=== PATIENT | male | born 1995 | race Caucasian/White ===

== ENCOUNTER 2025-02-11 14:54 | Emergency (ER) | payer OTHER, SELFPAY ==
[2025-02-11 15:00] VITALS: BP 179/112
[2025-02-11] MEDS: ZOFRAN ODT (ORALLY DISINTEGRATING) 4 MG PO (15:11)
[2025-02-11 15:19] LABS: Hematocrit 43.7 % (39.0-52.0); Hemoglobin 14.8 g/dL (13.0-18.0); Mean Corp Hgb Conc. 33.9 g/dL (33.0-37.0); Mean Corpuscular Volume 78.0 fL (80.0-94.0); Nucleated Red Blood Cells % 0 % (-); Platelet Count 308 10^3/uL (130-400); Red Cell Dist. Width 12.8 % (11.5-14.5)
[2025-02-11 15:32] LABS: ALT (SGPT) 71 U/L (0-50); AST (SGOT) 48 U/L (17-59); Albumin 5.2 g/dl (3.5-5.0); Alkaline Phosphatase 94 U/L (38-126); Blood Urea Nitrogen 8 mg/dl (9-20); Calcium 10.6 mg/dl (8.4-10.2); Carbon Dioxide 26 mmol/L (22-30); Chloride 104 mmol/L (98-107); Glucose 142 mg/dl (70-99); Lipase 33 U/L (23-300); Potassium 4.9 mmol/L (3.5-5.1); Sodium 139 mmol/L (135-145); Total Protein 8.8 g/dl (6.3-8.2); eGFR > 60.00
[2025-02-11] MEDS: NSS 1000 IV (18:54)
[2025-02-11] MEDS: HALDOL 1 MG IV (19:20)
--- NOTE | 2025-02-12 00:12 | ED.GENMED ---
History of Present Illness
General
Chief Complaint: Abdominal Symptoms
Source: patient
Exam Limitations: none
Time Seen by Provider: 02/11/25 17:28
Nursing documentation reviewed up to this point in time: agreed with
History of Present Illness
History of Present Illness:
Patient to the emergency department with complaint of cannabis hyperemesis. Symptoms started this a.m. He has been evaluated for this complaint in the past. He admits to daily cannabis use. He states he smokes cannabis multiple times throughout
the day. He is currently visiting family here in [facility], he has not been evaluated at this facility before. He denies any fever or chills. Reports nausea vomiting. He denies any abdominal pain, there are no episodes of diarrhea. To ED accompanied
by father for evaluation.
Past History
Past History
ED Past Medical History: Asthma and Other (Eosinophilic esophagitis, IBS)
Review of Systems
Review of Systems
Allergies reviewed?: Yes
All Other Systems: ROS reviewed and negative except as documented in HPI and ROS
Constitutional: Reports no symptoms
EENT: Reports no symptoms
Respiratory: Reports no symptoms
Cardiac: Reports no symptoms
ABD/GI: Reports nausea and vomiting
: Reports no symptoms
Musculoskeletal: Reports no symptoms
Skin: Reports no symptoms
Neurological: Reports no symptoms
Psychiatric: Reports no symptoms
Phy Exam
General Physical Exam
General Presentation: moderate distress
General age: appears stated age
General Skin: warm and dry
General Habitus: normal
General Mental: alert
Cardiovascular Exam
Cardiovascular Exam: regular rate/rhythm and no edema
Pulmonary Exam
Pulmonary Exam: lungs clear and no respiratory distress
Gastrointestinal Exam
Gastrointestinal Exam: normal bowel sounds, non tender, soft, no organomegaly and non distended
Musculoskeletal Exam
Musculoskeletal Exam: full ROM and neuro vasc intact
Skin Exam
Skin Exam: normal color, warm/dry and no rash
Psychiatric Exam
Psychiatric Exam: normal mood/affect
Course
Orders/Labs/Results
Orders:
Orders
02/11/25 14:58
IV Insert/Care/Rem.- Treatment PRN
02/11/25 15:07
Complete Blood Count/With Diff Urgent
Comprehensive Metabolic Panel Urgent
Lipase Urgent
02/11/25 15:10
Ondansetron Orally Disint [Zofran Odt (Orally Disintegrating)] 4 mg .ROUTE .STK-MED ONE
02/11/25 15:11
Ondansetron Orally Disint [Zofran Odt (Orally Disintegrating)] 4 mg PO NOW STA
02/11/25 18:17
0.9% Sodium Chloride 1000 ml [Nss] 1,000 ml IV BOLUS
02/11/25 18:20
Electrocardiogram (*1) Urgent
Reason for Study: Fatigue / Weakness
EKG- Treatment ONCE
02/11/25 19:15
Haloperidol Lactate [Haldol] 1 mg IV NOW STA
Abnormal Lab Results
02/11/25
15:07
MCV 78.0 L fL
(80.0-94.0)
MCH 26.4 L pg
(27.0-31.0)
MPV 11.2 H fL
(7.4-10.4)
Absolute Neuts (auto) 7.2 H 10^3/uL
(1.4-6.5)
Absolute Lymphs (auto) 0.5 L 10^3/uL
(1.2-3.4)
Neutrophils % 91.6 H %
(42.2-75.2)
Lymphocytes % 5.9 L %
(20.5-51.1)
BUN 8 L mg/dl
(9-20)
Glucose 142 H mg/dl
(70-99)
Calcium 10.6 H mg/dl
(8.4-10.2)
ALT 71 H U/L
(0-50)
Total Protein 8.8 H g/dl
(6.3-8.2)
Albumin 5.2 H g/dl
(3.5-5.0)
02/11/25 15:07
02/11/25 15:07
Vital Signs
Initial and Last Documented VS:
Initial Vital Signs
Temp Resp
98.9 F 21
02/11/25 14:58 02/11/25 14:58
Last Documented Vital Signs
Temp Pulse Resp BP Pulse Ox
98.9 F 66 16 179/112 98
02/11/25 14:58 02/11/25 15:00 02/11/25 17:52 02/11/25 15:00 02/11/25 15:00
*Pulse Oximetry
SaO2: 98
Oxygen Mode of Delivery: Room air
Patient hypoxic: no
*Critical Care Note
Total Time (30-74mins, 75-104mins- exclusive of procedures): Not Applicable
Update Note
Update Note:
Patient to the emergency department for evaluation of cannabis hyperemesis. He has had this issue in the past. States he has been treated successfully with Haldol and IV fluids in the past. He reports to daily cannabis use. He reports smoking
multiple times each day. Last time he smoked was last p.m. He states he woke this morning with nausea and vomiting. On arrival to ED he is awake alert and oriented. Vital signs are stable he remains afebrile. Labs reviewed. WBC 7.8. Mild
elevation of ALT at 71 noted. EKG NSR. QTc WNL. He was given 1 L of normal saline IV, Haldol 1 mg IV with resolution of his symptoms. He is tolerating p.o. fluids. He will be discharged home, close follow-up with PCP. He was given instructions
on signs and symptoms to return to the emergency department and he is agreeable to this plan.
ED Attending Note
-
Portions of this chart may have been created with voice recognition software.� Occasional wrong word or��sound alike� substitutions may have occurred due to the inherent limitations of voice recognition software.
Discharge Plan
Departure
Patient Disposition: Home (Routine Discharge)
Date of Disposition: 02/11/25
Time of Disposition: 20:51
Patient with high blood pressure during this ER visit?: No
Condition: Good
Covid-19: Not Applicable
Discharge Problem:
Cannabinoid hyperemesis syndrome
Instructions: Clear Liquid Diet, Cannabis hyperemesis syndrome
Prescriptions:
No Action
albuterol sulfate 2.5 MG/3 ML solution for nebulization
2.5 mg inhalation R Q4HPRN PRN (Reason: wheezing) Qty: 24 0RF
azithromycin 250 MG tablet
250 mg PO DAILY Qty: 4 0RF
acetaminophen-codeine 1 TABLET tablet
1 - 2 tab PO Q6HPRN PRN (Reason: cough) Qty: 8 0RF
oseltamivir 75 MG capsule
75 mg PO BID Qty: 10 0RF
Referrals:
ELMER METZ [Other] - Tomorrow
Interventions
Interventions:
*General Assessment Last Done: 02/11/25 14:58
*Neglect/Abuse Screening Last Done: 02/11/25 14:58
[facility] Risk Assessment Tool Last Done: 02/11/25 17:52
*Risk Screen - Suicide (C-SSRS) Last Done: 02/11/25 14:58
*Nursing Disposition Last Done: 02/11/25 21:27
OT-Owogom-Zqomautpgg Assessment Last Done: 02/11/25 17:52
Discharge Date and Time
Discharge Date/Time: 02/11/25 21:28
Print Language: PERSIAN
== END 2025-02-11 21:28 | disposition home or self-care (01) ==
LOC: EMR 14:54
PROVIDERS: Emergency Medicine; EMERGENCY PHYSICIAN Emergency Medicine
DX: R11.16 Cannabis hyperemesis syndrome (principal); F12.90 Cannabis use, unspecified, uncomplicated; J45.909 Unspecified asthma, uncomplicated; K58.9 Irritable bowel syndrome, unspecified
CPT/HCPCS: 99284; 96374; 96361; 80053; 83690; 85025; 93005